=== PATIENT | female | born 1950 | race Caucasian/White ===

== ENCOUNTER 2022-05-18 07:49 | Emergency (ER) | payer MEDICARE, SELFPAY ==
[2022-05-18 08:01] VITALS: BP 143/61; PULSE 51; RESP 15; O2SAT 98
--- NOTE | 2022-05-18 08:06 | CTR_ITS ---
PROCEDURE INFORMATION: Exam: CT Abdomen And Pelvis With Contrast Exam date and time: 05/18/2022 9:14 AM Age: 71 years old Clinical indication: Abdominal pain; Periumbilical; Prior surgery; Surgery date: 6+ months; Surgery type: Tubes tied; Additional info: Abd pain TECHNIQUE: Imaging protocol: Computed tomography of the abdomen and pelvis with contrast. Radiation optimization: All CT scans at this facility use at least one of these dose optimization techniques: automated exposure control; mA and/or kV adjustment per patient size (includes targeted exams where dose is matched to clinical indication); or iterative reconstruction. Contrast material: OMNIPAQUE 350; Contrast volume: 100 ml; Contrast route: INTRAVENOUS (IV); REPORTING DATA: Count of CT and Cardiac NM exams in prior 12 months: This patient has received 0 known CTs and 0 known cardiac nuclear medicine studies in the 12 months prior to the current study. COMPARISON: No relevant prior studies available. RADIATION DOSE METRICS: Total DLP (mGy-cm): 870.33 FINDINGS: Lungs: Small benign calcified granuloma in the right lower lobe. Liver: Small benign calcified granulomas present in the liver. No mass. Gallbladder and bile ducts: Cholelithiasis. There is mild dilatation of the extrahepatic bile ducts with a diameter of about 8 mm. Pancreas: Normal. No ductal dilation. Spleen: Normal. No splenomegaly. Adrenal glands: There is a 1.4 cm nodule in the right adrenal gland. The left adrenal gland is unremarkable. Kidneys and ureters: There is a 3 cm benign-appearing cyst at the superior pole of the left kidney. A 3.5 cm fat density mass is present in the lower pole of the left kidney consistent with an angiomyolipoma. No hydronephrosis or renal calculus. Stomach and bowel: Diverticulosis especially of the sigmoid colon. No evidence of acute diverticulitis. No bowel obstruction or dilatation. Appendix: Normal appendix. Intraperitoneal space: Unremarkable. No free air. No significant fluid collection. Vasculature: Mild calcification of the aorta. No abdominal aortic aneurysm. Lymph nodes: Unremarkable. No enlarged lymph nodes. Urinary bladder: Unremarkable as visualized. Reproductive: Unremarkable as visualized. Bones/joints: Chronic degenerative changes are present in the spine. No acute bony abnormality. Soft tissues: Small uncomplicated fat containing umbilical hernia. CT/CT abdomen pelvis w con* [id number] IMPRESSION: 1. Cholelithiasis. Mild bile duct dilatation. 2. Diverticulosis. No evidence of acute diverticulitis. 3. 1.4 cm right adrenal nodule. Consider 12 month follow-up adrenal CT. (Reference: Opal) COMMENTS: Consistent with the [employer]'s Incidental Findings Committee white paper (J Am Deyvi Radiol 2018): Any incidental renal lesion less than 1 cm or classified as too small to characterize, or any incidental cystic renal lesion characterized as simple-appearing, is likely benign. No follow-up imaging is recommended for these lesions per consensus recommendations based on imaging criteria. REFERENCES: Opal MUHAMMAD, et al. Management of Incidental Adrenal Masses: A White Paper of the ACR Incidental Findings Committee. J Am Deyvi Radiol. 2017;14(8):5867-4482.
--- NOTE | 2022-05-18 08:06 | W.ED.ABDPA2 ---
HPI - Abdominal Pain General: Chief Complaint: Abdominal Pain Stated Complaint: Abd pain, disoriented, Knot in stomach Time Seen by Provider: 05/18/22 07:50 Source: patient Mode of arrival: ambulatory Limitations: no limitations History of Present Illness: 71-year-old female states she woke up this morning at 3 AM with epigastric pain along with some nausea. States the pain is sharp in nature rates it a 9 out of 10 she taken Tums at home think was indigestion with no relief she denies any worsening improving factors denies any fever. Associated Symptoms: Denies chills, dysuria and fever(s) Review of Systems Const: Denies: fever(s), chills, body aches or change in appetite Eyes: Denies: blurry vision or eye discomfort ENMT: Denies: throat pain or dental pain Card: Denies: chest pain Resp: Denies: dyspnea GI: Reports: abdominal pain : Denies: dysuria Musc: Denies: neck pain or back pain Skin/Breast: Denies: rash Neuro: Denies: headache(s) Psych: Denies: depression Sadi/Lymph: Denies: easy bruising All/Imm: Denies: urticaria PFSH ED PFSH: Medical History (Updated 05/18/22 @ 09:58 by Bong Segura MD) No pertinent past medical history Social History (Updated 05/18/22 @ 08:07 by Bong Segura MD) Substance/Drug Use: never Physical Exam Const: COMMON NORMALS: no acute distress, patient oriented x3 and healthy appearing HENMT: COMMON NORMALS: normocephalic and atraumatic HEAD & SCALP: normocephalic and atraumatic Eye: COMMON NORMALS: Equal, round and reactive pupils present and EOMs intact bilaterally PUPIL: Yes Equal, round and reactive pupils present Neck/C-Spine: COMMON NORMALS: full ROM and supple Chest: COMMONS NORMALS: normal inspection of the chest and normal palpation of entire chest wall Resp: COMMON NORMALS: normal respiratory effort, No retractions, No use of accessory muscles and clear to auscultation bilaterally AUSCULTATION: clear to auscultation bilaterally Cardio: COMMON NORMALS: regular rate, regular rhythm and No murmurs present (Cardio) RATE: regular rate RHYTHM: regular rhythm GI: COMMON NORMALS: Normal to inspection, nondistended, normoactive bowel sounds present, Soft to palpation and no masses PALPATION: Yes Soft to palpation OTHER: mild epigastric tenderness Extremity: COMMON NORMALS: normal to inspection and full ROM Neuro: COMMON NORMALS: patient oriented x3, moves all extremities and no focal motor deficits Psych: COMMON NORMALS: mental status grossly normal, Normal thought process present and cooperative THOUGHT PROCESS: Normal thought process present Skin: COMMON NORMALS: no rashes or lesions noted and no wounds GENERAL SKIN EXAM: no rashes or lesions noted Course Vital Signs: Vital signs: Vital Signs Pulse Rate 51 L 05/18/22 08:01 Respiratory Rate 18 05/18/22 08:23 Blood Pressure 133/73 05/18/22 10:12 Pulse Oximetry 98 05/18/22 10:12 Oxygen Delivery Me thod 05/18/22 08:01 MDM - Abdominal Pain Medical Decision Making Patient presents here with abdominal pain CT showed no acute findings she does have some cholelithiasis Lumizyme's were mildly elevated white count was normal bili was normal no signs of choledocholithiasis she feels much improved abdominal exam at discharge benign we will get her surgery follow-up prescribe her pain meds if she has fever or worsening pain she is return immediately she understands agrees to plan. Lab Data 05/18/22 08:29 05/18/22 08:29 Labs/Radiology: Radiology Impressions Abdomen/Pelvis CT 05/18/22 08:06 IMPRESSION: 1. Cholelithiasis. Mild bile duct dilatation. 2. Diverticulosis. No evidence of acute diverticulitis. 3. 1.4 cm right adrenal nodule. Consider 12 month follow-up adrenal CT. (Reference: Opal) COMMENTS: Consistent with the [employer] [employer]'s Incidental Findings Committee white paper (J Am Deyvi Radiol 2018): Any incidental renal lesion less than 1 cm or classified as too small to characterize, or any incidental cystic renal lesion characterized as simple-appearing, is likely benign. No follow-up imaging is recommended for these lesions per consensus recommendations based on imaging criteria. REFERENCES: Opal MUHAMMAD, et al. Management of Incidental Adrenal Masses: A White Paper of the ACR Incidental Findings Committee. J Am Deyvi Radiol. 2017;14(8):1885-7021. Laboratory Results WBC 6.5 10^3/uL (4.0-10.0) 05/18/22 08: RBC 3.90 10^6/uL (4.1-5.3) L 05/18/22 08:29 Hgb 11.9 g/dL (11.5-15.3) 05/18/22 08:29 Hct 36.4 % (37.0-47.0) L 05/18/22 08:29 MCV 93.3 fl (81-99) 05/18/22 08: MCH 30.5 pg (28.0-34.0) 05/18/22 08: MCHC 32.7 g/dL (30.0-36.0) 05/18/22 08: RDW 12.1 % (12.1-15.1) 05/18/22 08:29 Plt Count 241 10^3/cmm (130-400) 05/18/22 08:29 MPV 10.8 fL (7.4-10.4) H 05/18/22 08:29 Neut % (Auto) 84.2 % 05/18/22 08:29 Lymph % (Auto) 11.4 % 05/18/22 08:29 [place] % (Auto) 3.4 % 05/18/22 08:29 Eos % (Auto) 0.2 % 05/18/22 08:29 Baso % (Auto) 0.3 % 05/18/22 08:29 Neut # (Auto) 5.49 10^3/uL (1.8-7.7) 05/18/22 08:29 Lymph # (Auto) 0.7 10^3/uL (0.8-4.8) L 05/18/22 08:29 [place] # (Auto) 0.2 10^3/uL (0.2-0.9) 05/18/22 08:29 Eos # (Auto) 0.0 10^3/uL (0.0-0.8) 05/18/22 08:29 Baso # (Auto) 0.0 10^3/uL (0.0-0.1) 05/18/22 08:29 Nucleated RBC % (auto) 0 % 05/18/22 08:29 Nucleated RBCs # 0.0 /100WBC 05/18/22 08:29 Sodium 136 mmol/L (136-145) 05/18/22 08:29 Potassium 3.8 mmol/L (3.5-5.1) 05/18/22 08:29 Chloride 98 mmol/L (98-107) 05/18/22 08:29 Carbon Dioxide 30 mmol/L (22-29) H 05/18/22 08:29 Anion Gap 11.8 (5-19) 05/18/22 08:29 BUN 12 mg/dL (8-23) 05/18/22 08:29 Creatinine 0.7 mg/dL (0.5-0.9) 05/18/22 08:29 GFR Calculation 82.7 mL/min (90-130) L 05/18/22 08:29 Glucose 158 mg/dL (65-115) H 05/18/22 08:29 Calculated Osmolality 285 mOsm/kg (285-295) 05/18/22 08:29 Lactate 2.1 mmol/L (0.5-2.2) 05/18/22 08:29 Calcium 9.7 mg/dL (8.5-10.5) 05/18/22 08:29 Total Bilirubin 0.4 mg/dL (0.15-1.2) 05/18/22 08:29 AST 223 U/L (0-32) H 05/18/22 08:29 ALT 143 U/L (0-33) H 05/18/22 08:29 Alkaline Phosphatase 62 U/L (35-105) 05/18/22 08:29 Total Protein 7.4 g/dL (6.6-8.7) 05/18/22 08:29 Albumin 3.9 g/dL (3.5-5.2) 05/18/22 08:29 Globulin 3.5 g/dL (1.3-4.6) 05/18/22 08:29 Lipase 29 U/L (13-60) 05/18/22 08:29 EKG Data EKG 1: I personally reviewed and interpreted this EKG as follows: EKG interpretation date: 05/18/22 EKG interpretation time: 08:27 Interpretation: sinus jenni hr [address] or t wave abnormalities qrs 109 qtc 448 Discharge Plan Discharge Patient Disposition: Home Clinical Impression: Abdominal pain Prescriptions: New hydrocodone-acetaminophen 5-325 mg tablet 1 tab PO Q6H PRN (Reason: pain) Qty: 14 0RF ondansetron 4 mg tablet,disintegrating 4 mg PO Q6H PRN (Reason: nausea and vomiting) Qty: 14 0RF Discharge Orders: Discharge ED (Routine); Ordered 05/18/22 Ordered By: Bong Segura Referrals: Jace Wyatt DO [Physician] - 1-3 days Gabriella Thacker FNP [Primary Care Provider] - Discharge Diet: Advance as tolerated Discharge Activity: Resume usual activity Patient Instructions: Abdominal Pain (ED), Opioid Safety Coding Level of Care Code ED Global Clinical Leader for Damari Sneed
--- NOTE | 2022-05-18 08:08 | ECG_ITS ---
[facility] Test Date: 2022-05-18 Pat Name: Jimenez Randall Department: Room: Gender: Female Sales And Service Advisor: : 1950 Requested By: Bong Segura Order Number: [id number] Reading MD: JENA RAMOS Measurements Intervals [place] Rate: 50 P: 33 [place]: 161 QRS: 52 QRSD: 109 T: 56 QT: 476 QTc: 435 Interpretive Statements SINUS BRADYCARDIA No previous ECG available for comparison Electronically Signed On 05-19-2022 3:07:35 CDT by JENA RAMOS [email or web address]
[2022-05-18 08:23] VITALS: RESP 18
[2022-05-18] MEDS: morphine 4 mg/mL SDV 1 mL IVP (08:23)
[2022-05-18] MEDS: sodium chloride 0.9% 1,000 ML 999 ML IV (08:23)
[2022-05-18] MEDS: ondansetron 2 mg/ML SDV 2 mL 4 MG IVP (08:23)
[2022-05-18 08:35] LABS: Basophils % 0.3 %; Eosinophils % 0.2 %; Hematocrit 36.4 % (37.0-47.0); Hemoglobin 11.9 g/dL (11.5-15.3); Lymphocytes # 0.7 10^3/uL (0.8-4.8); Lymphocytes % 11.4 %; Mean Corpuscular HGB Conc 32.7 g/dL (30.0-36.0); Mean Corpuscular Hemoglobin 30.5 pg (28.0-34.0); Mean Corpuscular Volume 93.3 fl (81-99); Mean Platelet Volume 10.8 fL (7.4-10.4); Monocytes # 0.2 10^3/uL (0.2-0.9); Monocytes % 3.4 %; Neutrophils # 5.49 10^3/uL (1.8-7.7); Neutrophils % 84.2 %; Nucleated Red Blood Cells % 0 %; Platelet Count 241 10^3/cmm (130-400); Red Cell Distribution Width 12.1 % (12.1-15.1); White Blood Count 6.5 10^3/uL (4.0-10.0)
[2022-05-18 08:59] LABS: Alanine Aminotransferase 143 U/L (0-33); Albumin Level 3.9 g/dL (3.5-5.2); Alkaline Phosphatase 62 U/L (35-105); Aspartate Amino Transferase 223 U/L (0-32); Blood Urea Nitrogen 12 mg/dL (8-23); Calcium 9.7 mg/dL (8.5-10.5); Carbon Dioxide 30 mmol/L (22-29); Chloride 98 mmol/L (98-107); Globulin 3.5 g/dL (1.3-4.6); Glomerular Filtration Rate 82.7 mL/min (90-130); Glucose 158 mg/dL (65-115); Lipase 29 U/L (13-60); Osmolality Calculated 285 mOsm/kg (285-295); Sodium 136 mmol/L (136-145); Total Bilirubin 0.4 mg/dL (0.15-1.2); Total Protein 7.4 g/dL (6.6-8.7)
[2022-05-18 09:00] LABS: Lactate (Lactic Acid level) 2.1 mmol/L (0.5-2.2)
[2022-05-18 09:04] LABS: Anion Gap 11.8 (5-19); Potassium 3.8 mmol/L (3.5-5.1)
[2022-05-18] MEDS: iohexol 350 mg/mL 500 mL Btl (per mL) IV (09:18)
[2022-05-18 10:12] VITALS: BP 133/73; O2SAT 98
--- NOTE | 2022-05-19 10:15 | DCPLANNER ---
Addendum entered by Taryn Locke 06/20/22 08:16: This appointment was rescheduled Addendum entered by Taryn Locke 05/20/22 08:12: Patient has a follow up appointment scheduled for Friday, June 17, 2022 at 10:[address] Wyatt at general surgery. Clinic will call patient with appointment information. Original Note: rn unit manager had message to schedule a follow up appointment for patient with general surgery. rn unit manager sent patients information to the front office staff at general surgery. Patients information will be printed and reviewed. Clinic will call patient with appointment information.
== END 2022-05-18 10:13 | disposition home or self-care (01) ==
PROVIDERS: Emergency Provider Emergency Medicine; PCP Nurse Practitioner Family
DX: R10.13 Epigastric pain (principal); K80.20 Calculus of gallbladder without cholecystitis without obstruction; K57.90 Diverticulosis of intestine, part unspecified, without perforation or abscess without bleeding
CPT/HCPCS: 74177; 80053; 83605; 83690; 85025; 93005; 96374; 96375; 99285; J2270; J2405; J7030; Q9967

== ENCOUNTER 2022-05-24 20:06 | Emergency (ER) | payer MEDICARE, SELFPAY ==
[2022-05-24 20:11] VITALS: BP 180/123; PULSE 103; RESP 18; TEMP 36.8; O2SAT 97; BMI 32.9
[2022-05-24 22:59] VITALS: BP 137/78; PULSE 90; RESP 16; O2SAT 100
--- NOTE | 2022-05-24 23:16 | USR_ITS ---
PROCEDURE INFORMATION: Exam: US Abdomen, Limited; Right Upper Quadrant Exam date and time: 05/24/2022 11:30 PM Age: 71 years old Clinical indication: Abdominal pain; Generalized; Additional info: Ruq pain, last week in er. Elevated lfts, gall stones, TECHNIQUE: Imaging protocol: Real time ultrasound of the abdomen with image documentation. Limited exam focused on the right upper quadrant. COMPARISON: CT abdomen pelvis w con* [id number] 05/18/2022 9:14 AM FINDINGS: Liver: The liver is unremarkable in appearance. Gallbladder: Shadowing gallstones in the gallbladder. The gallbladder is mildly distended measuring 11.5 cm longitudinal by 2.4 cm transverse. Gallbladder wall is mildly thickened, measuring 7 mm. No pericholecystic fluid. Negative sonographic Bhatti's sign reported. Biliary ducts: No biliary dilatation. The common duct measures 5.2 mm in diameter. Pancreas: Pancreas is unremarkable as demonstrated. Right kidney: Right kidney measures 10.3 cm in length. Normal renal echotexture. No hydronephrosis. No cyst, mass, or calculus demonstrated. Aorta: The aorta is unremarkable as demonstrated. Inferior vena cava: The intrahepatic portion of the inferior vena cava is unremarkable. US/US gall bladder [id number] IMPRESSION: Cholelithiasis and gallbladder wall thickening. No pericholecystic fluid. No biliary dilatation. Negative sonographic Bhatti's sign reported.
--- NOTE | 2022-05-24 23:18 | W.ED.ABDPA2 ---
HPI - Abdominal Pain General: Chief Complaint: Abdominal Pain Stated Complaint: low abd pain, gallbladder hx Time Seen by Provider: 05/24/22 22:52 Source: patient Mode of arrival: ambulatory Limitations: no limitations History of Present Illness: Patient presents emergency department today for evaluation treatment of worsening right upper quadrant pain. Patient was seen and evaluated here in the emergency department on 05/18. At that time, she was complaining of epigastric pain and nausea. Patient's work-up was generally unremarkable though she had noted elevations in LFT and a CT scan showed gallstones. She was treated with pain medication and antinausea medicine with referral to general surgery initiated on her behalf. She states she has a follow-up appoint with GEN coffman on 06/18. She is still been eating and drinking. She has not had fever or vomiting. She only occasionally takes pain medication for her discomfort. Associated Symptoms: Denies diarrhea and vomiting Review of Systems General: Reports: 10 or more systems reviewed and unremarkable except in HPI and below GI: Reports: abdominal pain; Denies: vomiting or diarrhea PFS ED PFSH: Medical History No pertinent past medical history Physical Exam Const: COMMON NORMALS: no acute distress, patient oriented x3 and alert HENMT: COMMON NORMALS: normocephalic, atraumatic, hearing grossly normal bilaterally and moist oral mucous membranes HEAD & SCALP: normocephalic and atraumatic Eye: COMMON NORMALS: Equal, round and reactive pupils present, EOMs intact bilaterally and conjunctivae normal CONJUNCTIVA: Yes conjunctivae normal PUPIL: Yes Equal, round and reactive pupils present Neck/C-Spine: COMMON NORMALS: full ROM and no JVD Lymph: LYMPHATIC: no lymphadenopathy noted Resp: COMMON NORMALS: normal respiratory effort, No retractions, No use of accessory muscles and clear to auscultation bilaterally AUSCULTATION: clear to auscultation bilaterally Cardio: COMMON NORMALS: no JVD, regular rate and regular rhythm RATE: regular rate RHYTHM: regular rhythm GI: OTHER: Patient with minimal epigastric tenderness today with tenderness on palpation to the right upper quadrant and right upper flank region. She has no CVA tenderness. No right lower quadrant tenderness. Abdomen is soft. Normal active bowel sounds throughout the abdomen. : COMMON NORMALS: Yes no CVA tenderness BLADDER/KIDNEY EXAM: Yes no CVA tenderness Back/Pelvis: COMMON NORMALS: no CVA tenderness, no thoracic nor lumbar tenderness and thoraco-lumbar ROM normal Extremity: COMMON NORMALS: normal to inspection, full ROM and capillary refill normal Neuro: COMMON NORMALS: patient oriented x3 SENSORIUM/ORIENTATION: Yes alert Psych: COMMON NORMALS: mental status grossly normal, Normal thought process present, cooperative, normal affect and activity/motor behavior normal THOUGHT PROCESS: Normal thought process present Skin: COMMON NORMALS: no rashes or lesions noted and no wounds GENERAL SKIN EXAM: no rashes or lesions noted Course Vital Signs: Vital signs: Vital Signs Temperature 98.2 F 05/24/22 20:11 Pulse Rate 78 05/25/22 01:35 Respiratory Rate 16 05/25/22 01:35 Blood Pressure 114/71 05/25/22 00:00 Pulse Oximetry 97 05/25/22 01:35 Oxygen Delivery Me thod 05/24/22 20:11 MDM - Abdominal Pain Medical Decision Making Patient's labs today are actually improved from a week ago. LFTs have significantly improved. Ultrasound still reveals the gallstone noted on the CT scan and no signs of any biliary duct dilatation. No signs of any trapped stone. At this point, patient is still tolerating food and fluids. She is afebrile and is not vomiting. Ultrasound and lab work are encouraging. After discussing with Dr. Nichole, we do feel patient is safe to discharge home. She is to keep her upcoming appointment with general surgeon and, a few more [place] were provided to her to help her with pain for the next couple of weeks. Patient was given strict return precautions for change or worsening in condition. Differential Diagnosis Likely abdominal pain, acute appendicitis, constipation, gastroenteritis and pancreatitis Lab Data 05/24/22 23:05 05/24/22 23:05 Labs/Radiology: Radiology Impressions Gallbladder Ultrasound 05/24/22 23:16 IMPRESSION: Cholelithiasis and gallbladder wall thickening. No pericholecystic fluid. No biliary dilatation. Negative sonographic Bhatti's sign reported. Laboratory Results WBC 7.3 10^3/uL (4.0-10.0) 05/24/22 23:05 RBC 4.01 10^6/uL (4.1-5.3) L 05/24/22 23:05 Hgb 12.2 g/dL (11.5-15.3) 05/24/22 23: Hct 37.6 % (37.0-47.0) 05/24/22 23: MCV 93.8 fl (81-99) 05/24/22 23: MCH 30.4 pg (28.0-34.0) 05/24/22 23: MCHC 32.4 g/dL (30.0-36.0) 05/24/22: RDW 12.1 % (12.1-15.1) 05/24/22 23: Plt Count 307 10^3/cmm (130-400) 05/24/22 23: MPV 10.3 fL (7.4-10.4) 05/24/22 23:05 Neut % (Auto) 65.0 % 05/24/22: Lymph % (Auto) 25.8 % 05/24/22 23: [place] % (Auto) 5.6 % 05/24/22: Eos % (Auto) 2.5 % 05/24/22:05 Baso % (Auto) 0.7 % 05/24/22 23:05 Neut # (Auto) 4.76 10^3/uL (1.8-7.7) 05/24/22 23:05 Lymph # (Auto) 1.9 10^3/uL (0.8-4.8) 05/24/22 23:05 [place] # (Auto) 0.4 10^3/uL (0.2-0.9) 05/24/22 23:05 Eos # (Auto) 0.2 10^3/uL (0.0-0.8) 05/24/22 23:05 Baso # (Auto) 0.1 10^3/uL (0.0-0.1) 05/24/22 23: Nucleated RBC % (auto) 0 % 05/24/22: Nucleated RBCs # 0.0 /100WBC 05/24/22 23:05 Sodium 138 mmol/L (136-145) 05/24/22 23:05 Potassium 3.5 mmol/L (3.5-5.1) 05/24/22 23:05 Chloride 98 mmol/L (98-107) 05/24/22 23:05 Carbon Dioxide 27 mmol/L (22-29) 05/24/22 23:05 Anion Gap 16.5 (5-19) 05/24/22 23:05 BUN 11 mg/dL (8-23) 05/24/22 23:05 Creatinine 0.6 mg/dL (0.5-0.9) 05/24/22 23:05 GFR Calculation 98.8 mL/min (90-130) 05/24/22 23:05 Glucose 102 mg/dL (65-115) 05/24/22 23:05 Calculated Osmolality 286 mOsm/kg (285-295) 05/24/22 23:05 Calcium 9.4 mg/dL (8.5-10.5) 05/24/22 23:05 Total Bilirubin 0.3 mg/dL (0.15-1.2) 05/24/22 23:05 AST 25 U/L (0-32) 05/24/22 23:05 ALT 38 U/L (0-33) H 05/24/22 23:05 Alkaline Phosphatase 142 U/L (35-105) H 05/24/22 23:05 Total Protein 8.0 g/dL (6.6-8.7) 05/24/22 23:05 Albumin 4.1 g/dL (3.5-5.2) 05/24/22 23:05 Globulin 3.9 g/dL (1.3-4.6) 05/24/22 23:05 Lipase 42 U/L (13-60) 05/24/22 23:05 Discharge Plan Discharge Patient Disposition: Home Clinical Impression: Cholelithiasis, Abdominal pain, acute, right upper quadrant Condition: Stable Prescriptions: No Action hydrocodone-acetaminophen 5-325 mg tablet 1 tab PO Q6H PRN (Reason: pain) Qty: 14 0RF ondansetron 4 mg tablet,disintegrating 4 mg PO Q6H PRN (Reason: nausea and vomiting) Qty: 14 0RF Discharge Orders: Discharge ED (Routine); Ordered 05/25/22 Ordered By: July Samuels Referrals: Gabriella Thacker FNP [Primary Care Provider] - Discharge Diet: As Directed Discharge Activity: Increase activity as tolerated Patient Instructions: Cholecystitis (ED), Abdominal Pain (ED) Activity Restrictions/Additional Instructions: Lab work today shows no acute concerns-they are actually improved somewhat from a week ago. You still have findings of a gallstone most likely causing continued issues with your right upper quadrant pain. However, there are no acute or emergent concerns requiring intervention or surgery here tonight. Continue to plan on seeing the general surgeon at your upcoming appointment. Watch for any onset of vomiting, fevers, or inability to tolerate your pain. If these agree need to be seen and reevaluated. Coding Level of Care Code ED Mint Wafer Depositor for Damari Sneed
[2022-05-24 23:22] LABS: Basophils # 0.1 10^3/uL (0.0-0.1); Basophils % 0.7 %; Eosinophils # 0.2 10^3/uL (0.0-0.8); Eosinophils % 2.5 %; Hematocrit 37.6 % (37.0-47.0); Hemoglobin 12.2 g/dL (11.5-15.3); Lymphocytes # 1.9 10^3/uL (0.8-4.8); Lymphocytes % 25.8 %; Mean Corpuscular HGB Conc 32.4 g/dL (30.0-36.0); Mean Corpuscular Hemoglobin 30.4 pg (28.0-34.0); Mean Corpuscular Volume 93.8 fl (81-99); Mean Platelet Volume 10.3 fL (7.4-10.4); Monocytes # 0.4 10^3/uL (0.2-0.9); Monocytes % 5.6 %; Neutrophils # 4.76 10^3/uL (1.8-7.7); Nucleated Red Blood Cells % 0 %; Platelet Count 307 10^3/cmm (130-400); Red Blood Count 4.01 10^6/uL (4.1-5.3); Red Cell Distribution Width 12.1 % (12.1-15.1); White Blood Count 7.3 10^3/uL (4.0-10.0)
[2022-05-24 23:40] LABS: Alanine Aminotransferase 38 U/L (0-33); Albumin Level 4.1 g/dL (3.5-5.2); Alkaline Phosphatase 142 U/L (35-105); Anion Gap 16.5 (5-19); Aspartate Amino Transferase 25 U/L (0-32); Blood Urea Nitrogen 11 mg/dL (8-23); Calcium 9.4 mg/dL (8.5-10.5); Carbon Dioxide 27 mmol/L (22-29); Chloride 98 mmol/L (98-107); Globulin 3.9 g/dL (1.3-4.6); Glomerular Filtration Rate 98.8 mL/min (90-130); Glucose 102 mg/dL (65-115); Lipase 42 U/L (13-60); Osmolality Calculated 286 mOsm/kg (285-295); Potassium 3.5 mmol/L (3.5-5.1); Sodium 138 mmol/L (136-145); Total Bilirubin 0.3 mg/dL (0.15-1.2)
[2022-05-25] VITALS: BP 114/71; PULSE 79; RESP 16; O2SAT 98
[2022-05-25 00:24] VITALS: RESP 16; O2SAT 97
[2022-05-25] MEDS: ondansetron 2 mg/ML SDV 2 mL 4 MG IVP (00:24)
[2022-05-25] MEDS: morphine 4 mg/mL SDV 1 mL IVP (00:24)
[2022-05-25 01:35] VITALS: PULSE 78; RESP 16; O2SAT 97
== END 2022-05-25 01:43 | disposition home or self-care (01) ==
PROVIDERS: Physician Assistant; Emergency Provider Physician Assistant; PCP Nurse Practitioner Family
DX: K80.20 Calculus of gallbladder without cholecystitis without obstruction (principal)
CPT/HCPCS: 76705; 80053; 83690; 85025; 96374; 96375; 99285; J2270; J2405

== ENCOUNTER → 2022-06-20 14:32 | Outpatient (BNVA) | payer MEDICARE, SELFPAY | PROVIDERS: PCP Nurse Practitioner Family; Visit Provider Surgery | DX: K80.20 Calculus of gallbladder without cholecystitis without obstruction (principal) | CPT/HCPCS: 99203 ==

== ENCOUNTER 2022-06-23 06:47 | Day surgery (SDC) | payer MEDICARE, SELFPAY ==
[2022-06-23] VITALS (8 sets, daily range): BP systolic 105–141; BP diastolic 60–75; PULSE 55–69; RESP 16–20; TEMP 36.2; O2SAT 97–100; BMI 33.3
--- NOTE | 2022-06-23 07:11 | W.PM.OPSUD ---
Surgery/Procedure H&P Update DATE OF PROCEDURE: June 23, 2022 DATE H&P PERFORMED: 06/20/22 H&P UPDATE INFORMATION: I have reviewed H&P completed within last 30 days, I have examined patient prior to procedure and No changes to prior documentation PLANNED PROCEDURE: Operation Date: 06/23/22 09:10 Proposed Procedures p lap kaitlin [id number] k80.20(Not Applicable) - Jace Wyatt DO
[2022-06-23] MEDS: sodium chloride 0.9% 1,000 ML 30 ML IV (07:47)
[2022-06-23] MEDS: ceFAZolin 2,000 MG in sodium chloride 0.9% (plus) 50 ML 100 MG IV (09:25)
[2022-06-23] MEDS: lidocaine-epi 2% 20 mL INJ INJECTION (09:52)
--- NOTE | 2022-06-23 10:43 | P.OP_ITS ---
Operative Report Date of procedure: June 23, 2022 Pre-op diagnosis: Preop Diagnosis Symptomatic cholelithiasis Post-op diagnosis: other (Acute calculus cholecystitis) Procedure done: Laparoscopic cholecystectomy Implants: Surgicel x2 Specimens removed/disposition: Gallbladder Surgeon: Dr. Jace Wyatt DO Anesthesia: General Estimated blood loss (mL): 20 Complications: None apparent Brief History: This is a very pleasant 71-year-old female who was found to have symptomatic cholelithiasis. Laparoscopic cholecystectomy was indicated. The risk and benefits were explained and documented. Procedure: Patient was wheeled into the operative room and placed on the OR table in a supine position. Abdomen was inspected prepped and draped in usual sterile fashion. Time-out was performed and all present were in agreement. A 15 blade scalp was used to make a stab incision in the left upper quadrant and intra- abdominal insufflation was achieved using a Veress needle. After localizing the tissue incisions were made and a 5 millimeter trocar was placed into the umbilicus as well as 2 in the right upper quadrant. A 12 millimeter trocar was placed in the epigastrium. Gallbladder was grasped and elevated. The gallbladder was found to be acutely inflamed and edematous. The triangle of [place] was carefully dissected using blunt dissection and electrocautery until the triangle of [place] clearly identified. The cystic duct was clipped proximally and double clipped distally. The duct was then ligated proximally. The cystic artery was doubly clipped and ligated. The gallbladder was then removed from the liver bed using electrocautery. Bleeding from the liver bed was controlled with electrocautery and then 2 pieces of Surgicel were placed over the liver bed and esdras hepatis. The gallbladder was removed from the abdomen using an Endo-Catch bag through the epigastric incision. The very large gallstone required significant extension of the epigastric incision. The liver bed was inspected and no bleeding was seen. The abdomen was irrigated and suctioned. The fascia at the epigastric incision was closed with an 0 Vicryl a ada SimsAilyn in multiple [id number] fashions. All ports removed. Skin was washed and dried. Incisions were closed with 3-0 Vicryl and 4-O Monocryl in a subcuticular interrupted fashion. Skin glue was applied. Patient tolerated the procedure well.
[2022-06-23] MEDS: oxyCODONE-APAP 5-325 mg Tablet 1 TAB PO (12:19)
--- NOTE | 2022-06-23 15:04 | ANES.PREANE2 ---
Pre-Anesthetic Assessment Height/Weight: Height 1.63 m Weight 87.997 kg Temp Pulse Resp BP Pulse Ox O2 Del Method 97.2 F L 58 L 16 116/68 98 Room Air 06/23/22 12:00 06/23/22 12:00 06/23/22 12:00 06/23/22 12:00 06/23/22 12:00 06/23/22 12:00 Preop Diagnosis: Symptomatic cholelithiasis Operation Date: 06/23/22 09:10 Proposed Procedures p lap [email or web address] [id number](Not Applicable) - Jace Wyatt DO Familial anesthetic complications: none Was Beta Tho taken within 24 hours: Yes Was Clonidine taken within 24 hours: N/A Last intake: Intake Last Liquid Date 06/22/22 Last Liquid Time 18:00 Last Solid Date 06/22/22 Last Solid Time 18:00 Social No alcohol and No tobacco Exam alert, oriented x 3, clear to auscultation bilaterally and regular rate & rhythm Airway Submandibular: within normal limits Cervical ROM: within normal limits Mallampati: Class II CV/HEM Hypertension Metabolic Hyperlipidemia and Morbid Obesity Anesthetic Plan ASA status: 3 Anesthesia: General Medications/Allergies Home Medications Medication Instructions Recorded Confirmed Last Taken Type hydrocodone 5 mg-acetaminophen 325 1 tab PO Q6H PRN pain #14 tabs 05/18/22 06/20/22 Unknown Rx mg tablet ondansetron 4 mg disintegrating 4 mg PO Q6H PRN nausea and 05/18/22 06/23/22 Unknown Rx tablet vomiting #14 tabs amoxicillin 875 mg tablet 875 mg PO BID 10 days #20 tabs 06/20/22 06/23/22 Unknown Rx atenolol 50 mg tablet 1 tab PO DAILY 06/20/22 06/23/22 06/22/22 History hydralazine 50 mg tablet 1 ea PO DAILY 06/20/22 06/23/22 06/22/22 History hydrochlorothiazide 12.5 mg capsule 1 ea PO DAILY 06/20/22 06/23/22 06/22/22 History ibuprofen 800 mg tablet 1 ea PO PRN PRN Pain 06/20/22 06/23/22 Unknown History lisinopril 40 mg tablet 1 tab PO DAILY 06/20/22 06/23/22 06/22/22 History simvastatin 40 mg tablet 1 tab PO DAILY 06/20/22 06/23/22 06/22/22 History docusate sodium 100 mg capsule 100 mg PO BID #14 caps 06/23/22 Unknown Rx (Colace) oxycodone-acetaminophen 5 mg-325 1 tab PO Q4H PRN pain #30 tabs 06/23/22 Unknown Rx mg tablet Allergies Allergy/AdvReac Type Severity Reaction Status Date / Time No Known Allergies Allergy Verified 06/20/22 14:35 PFSH Anesthesia Medical History No pertinent past medical history Surgical History Hx of colonoscopy Hx of tubal ligation Family History Mother Cancer kidney Father Cancer colon Social History Smoking and tobacco status: never smoked Alcohol intake: never Substance/Drug Use: never Data Anesthesia Cardiac Studies: No Data to Display
--- NOTE | 2022-06-23 15:15 | ANE.PACU2 ---
Inpatient post-anesthesia follow up: Airway intact: Yes Vital signs: Temperature 97.2 F Pulse Rate 58 Respiratory Rate 16 Blood Pressure 116/68 Pulse Oximetry 98 Oxygen Delivery Me thod Room Air Oxygen Flow Rate Fraction of Inspir ed Oxygen Hydration adequate: Yes Nausea and vomiting: No Pain level: 3 Mental status: Baseline
== END 2022-06-23 12:50 | disposition home or self-care (01) ==
PROVIDERS: PCP Nurse Practitioner Family; Visit Provider Surgery
PROC: 0FT44ZZ Resection of Gallbladder, Percutaneous Endoscopic Approach (ICD-10-PCS; CPT 47562; principal; 2022-06-23 09:00)
DX: K80.10 Calculus of gallbladder with chronic cholecystitis without obstruction (principal); I10 Essential (primary) hypertension; E78.5 Hyperlipidemia, unspecified; E66.01 Morbid (severe) obesity due to excess calories; Z68.33 Body mass index [BMI] 33.0-33.9, adult; Z79.899 Other long term (current) drug therapy
CPT/HCPCS: 47562; 88304; J0690; J1100; J1885; J2370; J2405; J2704; J2710; J3010; J3490; J7030

== ENCOUNTER → 2022-07-08 08:55 | Outpatient (BNVA) | payer MEDICARE, SELFPAY | PROVIDERS: PCP Nurse Practitioner Family; Visit Provider Surgery | DX: Z90.49 Acquired absence of other specified parts of digestive tract (principal); Z98.890 Other specified postprocedural states | CPT/HCPCS: 99024 ==